=== PATIENT | female | born 1985 | race Caucasian/White ===

== ENCOUNTER 2016-09-28 01:44 | Emergency (ER) | payer MEDICAID ==
[~2016-09-28] VITALS: Ht 154.9 cm; Wt 95.0 kg
[~2016-09-28 01:44] MED LIST: ACET500C5 PO; ALBU18HF INHALATION; AMO500 PO; AUG875 PO; AZIT250T94 PO; CETI10CA PO; CYCL-319 PO; HYDR-3498 PO; IBUP-1542 PO; MOTRIN; NAPR-260 PO; NAPR-688 PO; PREN1TAB49 PO; PSEU120T51 PO; RANI150T9 PO
[2016-09-28 01:47] VITALS: Ht 154.9 cm; Wt 95.0 kg
[2016-09-28] MEDS ORDERED: PSEU120T51 PO (02:38)
[2016-09-28] MEDS ORDERED: AMOX1TAB10 PO (02:38)
--- NOTE | 2016-09-28 02:58 | ERD ---
ER Documentation Chief Complaint Date/Time DATE: 09/28/16 TIME: 02:56 Chief Complaint fever, headache, nasal congestion HPI 31-year-old female presents with runny nose headache, nasal congestion for the past 1 month. She states that she has had allergy symptoms, has been seen by her doctor and was given a nasal spray as well as Zyrtec. She states that she has a frontal headache, is pressure-like. She reports tactile fevers only. No vomiting or diarrhea. ROS All systems reviewed and are negative except as per history of present illness. Medications Home Meds Active Scripts Pseudoephedrine Hcl (Sudafed 12 Hour) 120 Mg Tablet.sa, 120 MG PO BID, #6 Prov:KARLO MOSHER PA-C 09/28/16 Amoxicillin/Potassium Clav (Amox-Clav 875-125 mg Tablet) 875-125 mg Tab, 1 TAB PO BID for 7 Days, #14 TAB Prov:KARLO MOSHER PA-C 09/28/16 Amoxicillin-Clavulanate K* (Augmentin*) 875 Mg Tab, 875 MG PO BID for 7 Days, TAB Prov:KARLO MOSHER PA-C 08/06/15 Ranitidine Hcl* (Zantac*) 150 Mg Tablet, 150 MG PO BID, #60 TAB Prov:SHERLYN ALBERTO DO 07/14/15 Naproxen* (Naproxen*) 500 Mg Tablet, 500 MG PO BID, #14 TAB Prov:DOLLYSHERLYN DO 07/14/15 Albuterol Sulfate* (Ventolin HFA*) 18 Gm Hfa.aer.ad, 2 PUFF INHALATION Q4H, #1 INHALER Prov:DOLLYSHERLYNCARLI AGRAWAL 07/14/15 Amoxicillin* (Amoxicillin*) 500 Mg Cap, 500 MG PO Q8, #30 CAP Prov:DOLLYSHERLYN DO 07/14/15 Acetaminophen* (Tylophen*) 500 Mg Capsule, 1 CAP PO Q6H Y for PAIN AND OR ELEVATED TEMP, #20 CAP Prov:KEYUR BELTRE NP 07/13/15 Cetirizine Hcl* (Zyrtec*) 10 Mg Capsule, 10 MG PO DAILY, #30 TAB.CHEW Prov:KEYUR BELTRE NP 07/13/15 Ibuprofen* (Motrin*) 600 Mg Tab, 600 MG PO Q6, #14 TAB Prov:AMPARO PIÑA MD 05/23/15 Azithromycin* (Zithromax*) 250 Mg Tablet, 250 MG PO .ZPACK DIRECTED, #6 TAB TAKE 500 MG (2 TABS) THE FIRST DAY THEN 250 MG (1 TAB) DAYS 2-5 Prov:AMPARO PIÑA MD 05/23/15 Pseudoephedrine Hcl (Sudafed 12 Hour) 120 Mg Tablet.sa, 120 MG PO BID, #14 Prov:AMPARO PIÑA MD 05/23/15 Cyclobenzaprine Hcl* (Cyclobenzaprine Hcl*) 10 Mg Tablet, 10 MG PO TID, #15 TAB Prov:KAVON MENDEZ PA-C 04/26/15 Naproxen* (Naprosyn*) 500 Mg Tablet, 500 MG PO BID Y for PAIN AND/OR INFLAMMATION, #30 TAB Prov:KAVON MENDEZ PA-C 04/26/15 Hydrocodone Bit-Acetaminophen* ([place]*) 5-325 Mg Tab, 1 TAB PO Q6 Y for PAIN, # 10 TAB Prov:KAVON MENDEZ PA-C 04/26/15 Reported Medications Vits W-Ca,Fe,Fa(<1MG) () 1 Tab Tablet, 1 PO DAILY 11/16/11 Motrin 04/22/10 Allergies Allergies: Coded Allergies: No Known Drug Allergy (Verified Allergy, Unknown, 08/24/14) PMhx/Soc History of Surgery: No Anesthesia Reaction: No Hx Neurological Disorder: No Hx Respiratory Disorders: No Hx Cardiac Disorders: No Hx Psychiatric Problems: No Hx Miscellaneous Medical Probl: No Hx Alcohol Use: No Hx Substance Use: No Hx Tobacco Use: No Physical Exam Vitals Vital Signs Date Time Temp Pulse Resp B/P Pulse Ox O2 Delivery O2 Flow Rate FiO2 09/28/16 01:47 97.8 62 20 137/63 99 Physical Exam General: Well-developed, well-nourished. The patient appears in no acute distress. HEENT: Head is normocephalic, atraumatic. No scleral icterus. Frontal sinuses are tender to palpation, there is obvious nasal congestion noted. TMs are normal, oropharynx is clear. Neck: Supple. Nontender. Lungs: Clear to auscultation. Normal air movement. Heart: Regular rate and rhythm. S1 and S2 are normal. No murmurs, gallops, or rubs. Abdomen: Nondistended. Extremities: No clubbing or cyanosis. Moving extremities x 4. No weakness. Neurologic: Alert and oriented 3. No focal deficits. Normal speech and gait. Skin: Normal turgor. No rash or lesions. Procedures/MDM 31-year-old female presents with sinus congestion for greater than 2 weeks. Patient will be treated for acute sinusitis given the length and duration of the course without any improvement with Zyrtec and nasal spray. There are no signs of any meningitis, abscess, pneumonia, strep pharyngitis, facial cellulitis. Departure Diagnosis: Primary Impression: Sinusitis Condition: Good Patient Instructions: Sinusitis, Abx Tx Additional Instructions: Llame al doctor MAANA y beverly issac HA PARA DENTRO DE 1-2 KUMAR.Dgale a la secretaria que nosotros le instruimos hacer esta ha.Avise o llame si long condicin se empeora antes de la ha. Regresa aqui si peor o no mejor. KARLO MOSHER PA-C Sep 28, 2016 02:58
== END 2016-09-28 03:01 | disposition home or self-care (01) ==
LOC: FTE 01:44
DX: J32.9 Chronic sinusitis, unspecified (principal)
CPT/HCPCS: 99283

== ENCOUNTER 2017-01-29 09:56 | Emergency (ER) | payer MEDICAID ==
[~2017-01-29] VITALS: Ht 149.9 cm; Wt 94.5 kg
[~2017-01-29 09:56] MED LIST changes: +AMOX1TAB10 PO
[2017-01-29 10:01] VITALS: Ht 149.9 cm; Wt 94.5 kg
[2017-01-29] MEDS ORDERED: ONDANSETRON 4 MG INJ IV STA (10:32)
[2017-01-29] MEDS ORDERED: SOD CHLORIDE 0.9% 1,000 ML IV STA (10:32)
[2017-01-29] MEDS ORDERED: ACETAMINOPHEN 500 MG TAB PO STA (10:39)
[2017-01-29 11:02] LABS: BASOPHIL # 0.1 10^3/ul (0.0-0.1); BASOPHILS % 0.6 % (0.0-2.0); EOSINOPHILS # 0.1 10^3/ul (0.0-0.5); EOSINOPHILS % 1.1 % (0.0-7.0); HEMATOCRIT 41.6 % (37.0-47.0); HEMOGLOBIN 13.8 g/dl (12.0-16.0); LYMPHOCYTES # 2.9 10^3/ul (0.8-2.9); LYMPHOCYTES % 23.2 % (15.0-51.0); MEAN CORPUSCULAR HEMOGLOBIN 28.5 pg (29.0-33.0); MEAN CORPUSCULAR HGB CONC 33.2 g/dl (32.0-37.0); MEAN PLATELET VOLUME 12.2 fl (7.4-10.4); MONOCYTE # 1.1 10^3/ul (0.3-0.9); MONOCYTES % 8.7 % (0.0-11.0); NEUTROPHIL # 8.2 10^3/ul (1.6-7.5); NEUTROPHILS % 65.9 % (39.0-77.0); PLATELET COUNT 251 10^3/UL (140-415); RED BLOOD COUNT 4.84 10^6/ul (4.20-5.40); RED CELL DISTRIBUTION WIDTH 12.9 % (11.5-14.5); WHITE BLOOD COUNT 12.4 10^3/ul (4.8-10.8)
[2017-01-29 11:13] LABS: ADD UMIC YES; UR ASCORBIC ACID NEGATIVE (NEGATIVE); UR BILIRUBIN (Dip) NEGATIVE (NEGATIVE); UR BLOOD (Dip) 1+ mg/dL (NEGATIVE); UR CLARITY SLIGHTLY CLOUDY (CLEAR); UR COLOR YELLOW (YELLOW); UR GLUCOSE (Dip) NEGATIVE (NEGATIVE); UR KETONES (Dip) NEGATIVE (NEGATIVE); UR LEUKOCYTE ESTERASE (Dip) NEGATIVE Leu/ul (NEGATIVE); UR NITRITE (Dip) NEGATIVE (NEGATIVE); UR RBC 2 /HPF (0-5); UR SQUAMOUS EPITHELIAL CELL MODERATE /HPF (FEW); UR TOTAL PROTEIN (Dip) NEGATIVE (NEGATIVE); UR UROBILINOGEN (Dip) NEGATIVE (NEGATIVE)
[2017-01-29 11:25] LABS: ALBUMIN 4.3 g/dl (3.3-4.9); ALBUMIN/GLOBULIN RATIO 1.26; BILIRUBIN,INDIRECT 0.3 mg/dl (0-1.1); BILIRUBIN,TOTAL 0.3 mg/dl (0.2-1.3); CALCIUM 9.7 mg/dl (8.4-10.2); CREATININE 0.54 mg/dl (0.44-1.00); TOTAL PROTEIN 7.7 g/dl (6.1-8.1)
--- NOTE | 2017-01-29 11:40 | RADRPT ---
PROCEDURE: US Abdomen. CLINICAL INDICATION: abdominal pain TECHNIQUE: Multiple real-time images were acquired of the patient's right upper quadrant abdomen a nd retroperitoneum utilizing a high resolution transducer. COMPARISON: None FINDINGS: Limited study due to the patient's body habitus. The liver demonstrates normal echogenicity. The liver is normal in size and no focal solid lesions are seen. The liver measures 14.4 cm in length. The portal vein is patent with normal direction of f low. No intrahepatic biliary dilatation is seen. No gallstones are identified within the gallbladder. There is no pericholecystic fluid or gallbladd er wall thickening. The common bile duct was not seen. The visualized portions of the pancreas are unremarkable. The tail of the pancreas is not seen. No free fluid is identified. The right kidney is normal in size, and demonstrate normal echogenicity and cortical thickness. The right kidney measures 10.8 cm in long dimension. There is no evidence of hydronephrosis. There are no kidney stones. RPTAT: AA IMPRESSION: Limited study due to the patient's body habitus. No evidence of gallstones. CBD not visualized. .Braulio Zendejas MD, Date Time Electronically viewed and signed by .Braulio Zendejas MD, on 01/29/2017 11:40 .S/
--- NOTE | 2017-01-29 12:27 | RADRPT ---
PROCEDURE: CT abdomen and pelvis without intravenous contrast. CLINICAL INDICATION: Abdominal pain with nausea, vomiting, and diarrhea for 1 day TECHNIQUE: CT of the abdomen/pelvis was performed utilizing axial images with reconstructions in s agittal and coronal planes. The administered radiation dose is CTDI 22.54 mGy, DLP 1349.63 mGy-cm. O ne or more of the following dose reduction techniques were used: Automated exposure control, Adjustm ent of the mA and/or kV according to patient size, or Use of iterative reconstruction technique. COMPARISON: Abdominal ultrasound 01/29/2017 FINDINGS: Lung bases: The lung bases are clear, except for mild atelectasis and / or scarring in the right mid dle lobe and lingula. A 4 mm calcified granuloma with adjacent mild atelectasis or scarring is noted in the inferior left lower lobe peripherally. .The heart is normal size without pericardial effusi on. CT ABDOMEN: Evaluation of the abdominal viscera is limited without intravenous contrast. Gastrointestinal tract: There is no bowel obstruction.No abnormal colonic wall thickening is identif ied.There is no pneumoperitoneum. A normal-appearing retrocecal appendix is visualized. No periappe ndiceal inflammatory changes are noted. A few nonspecific mildly prominent sub centimeter rohit ceca l lymph nodes are noted. Liver: The liver is normal in size.There is no intrahepatic ductal dilatation. Gallbladder: The gallbladder is grossly unremarkable. Pancreas: The pancreas is grossly unremarkable. Spleen: The spleen is normal in size. Kidneys: The kidneys are normal in size and contour.No renal calculi identified.There is no evidence of hydronephrosis. Adrenal glands: The bilateral adrenal glands are unremarkable. Retroperitoneum: There is no retroperitoneal adenopathy.The aorta is normal in caliber. Probable lower anterior abdominal wall injection granulomata are noted. CT PELVIS: Pelvic organs: The uterus is mildly prominent and contains a small amount of fluid in the endometria l canal. The ovaries are not well seen. Bladder: The bladder is distended, but grossly unremarkable. There is no pelvic free fluid.No pelvic adenopathy is identified. Osseous structures: No destructive lytic or blastic osseous lesion is identified. IMPRESSION: Evaluation of the abdominal viscera is limited without intravenous contrast. 1. No evidence of acute intra-abdominal pathology. 2. Mildly prominent uterus containing a small amount of fluid in the endometrial canal. Correlate w ith menstrual history. 3. Left lower lobe peripheral calcified granuloma and minimal atelectasis at the lung bases. RPTAT: PP Carmen Yanez, Physician Date Time Electronically viewed and signed by Carmen Yanez, Physician on 01/29/2017 12:26 /
[2017-01-29] MEDS ORDERED: ONDA4TAB14 PO (12:32)
[2017-01-29] MEDS ORDERED: FAMO-96 PO (12:33)
--- NOTE | 2017-01-29 12:49 | ERD ---
ER Documentation Chief Complaint Date/Time DATE: 01/29/17 TIME: 12:47 Chief Complaint 9/10 abd pain x this am HPI This is a 31-year-old female presenting to the emergency department complaining of severe abdominal pain, locating in her epigastric region that radiates to her back since this morning. Patient states it is constant and admits to having associated nausea and nonbilious non-bloody vomiting. Patient denies any constipation or diarrhea. She states that she has tried Pepto-Bismol however she vomited it. Her past surgeries include 3 C-sections. She states she is currently on her menstrual period ROS All systems reviewed and are negative except as per history of present illness. Medications Home Meds Active Scripts Famotidine* (Pepcid*) 20 Mg Tablet, 20 MG PO DAILY, #14 TAB Prov:DONNY ROGERS PA-C 01/29/17 Ondansetron (Ondansetron Odt) 4 Mg Tab.rapdis, 4 MG PO Q6H Y for NAUSEA AND/OR VOMITING, #20 TAB Prov:DONNY ROGERS PA-C 01/29/17 Pseudoephedrine Hcl (Sudafed 12 Hour) 120 Mg Tablet.sa, 120 MG PO BID, #6 Prov:KARLO MOSHER PA-C 09/28/16 Amoxicillin/Potassium Clav (Amox-Clav 875-125 mg Tablet) 875-125 mg Tab, 1 TAB PO BID for 7 Days, #14 TAB Prov:KARLO MOSHER PA-C 09/28/16 Amoxicillin-Clavulanate K* (Augmentin*) 875 Mg Tab, 875 MG PO BID for 7 Days, TAB Prov:KARLO MOSHER PA-C 08/06/15 Ranitidine Hcl* (Zantac*) 150 Mg Tablet, 150 MG PO BID, #60 TAB Prov:SHERLYN ALBERTO DO 07/14/15 Naproxen* (Naproxen*) 500 Mg Tablet, 500 MG PO BID, #14 TAB Prov:SHERLYN ALBERTO DO 07/14/15 Albuterol Sulfate* (Ventolin HFA*) 18 Gm Hfa.aer.ad, 2 PUFF INHALATION Q4H, #1 INHALER Prov:SHERLYN ALBERTO DO 07/14/15 Amoxicillin* (Amoxicillin*) 500 Mg Cap, 500 MG PO Q8, #30 CAP Prov:SHERLYN ALBERTO DO 07/14/15 Acetaminophen* (Tylophen*) 500 Mg Capsule, 1 CAP PO Q6H Y for PAIN AND OR ELEVATED TEMP, #20 CAP Prov:KEYUR BELTRE NP 07/13/15 Cetirizine Hcl* (Zyrtec*) 10 Mg Capsule, 10 MG PO DAILY, #30 TAB.CHEW Prov:KEYUR BELTRE NP 07/13/15 Ibuprofen* (Motrin*) 600 Mg Tab, 600 MG PO Q6, #14 TAB Prov:AMPARO PIÑA MD 05/23/15 Azithromycin* (Zithromax*) 250 Mg Tablet, 250 MG PO .AimeePACK DIRECTED, #6 TAB TAKE 500 MG (2 TABS) THE FIRST DAY THEN 250 MG (1 TAB) DAYS 2-5 Prov:AMPARO PIÑA MD 05/23/15 Pseudoephedrine Hcl (Sudafed 12 Hour) 120 Mg Tablet.sa, 120 MG PO BID, #14 Prov:AMPARO PIÑA MD 05/23/15 Cyclobenzaprine Hcl* (Cyclobenzaprine Hcl*) 10 Mg Tablet, 10 MG PO TID, #15 TAB Prov:KAVON MENDEZ PA-C 04/26/15 Naproxen* (Naprosyn*) 500 Mg Tablet, 500 MG PO BID Y for PAIN AND/OR INFLAMMATION, #30 TAB Prov:KAVON MENDEZ PA-C 04/26/15 Hydrocodone Bit-Acetaminophen* ([place]*) 5-325 Mg Tab, 1 TAB PO Q6 Y for PAIN, # 10 TAB Prov:KAVON MENDEZ PA-C 04/26/15 Reported Medications Vits W-Ca,Fe,Fa(<1MG) () 1 Tab Tablet, 1 PO DAILY 11/16/11 Motrin 04/22/10 Allergies Allergies: Coded Allergies: No Known Drug Allergy (Verified Allergy, Unknown, 01/29/17) PMhx/Soc History of Surgery: Yes (c/section x3) Anesthesia Reaction: No Hx Neurological Disorder: No Hx Respiratory Disorders: No Hx Cardiac Disorders: No Hx Psychiatric Problems: No Hx Miscellaneous Medical Probl: No Hx Alcohol Use: No Hx Substance Use: No Hx Tobacco Use: No Smoking Status: Never smoker Physical Exam Vitals Vital Signs Date Time Temp Pulse Resp B/P Pulse Ox O2 Delivery O2 Flow Rate FiO2 01/29/17 10:01 98.2 89 18 139/94 100 Physical Exam GENERAL: well-developed/well-nourished, in no apparent distress, non-toxic appearing Morbidly obese HENT: NC/AT, moist mucous membranes EYES: Conjunctiva normal NECK: Supple, no lymphadenopathy PULM: CTA bilaterally, no rales, rhonchi, or wheezing heard CV: Normal S1S2, RRR, good capillary refill GI: Soft, non-distended, tender to palpation epigastric region and all quadrants however more mostly tender in the epigastric region Normal bowel sounds, no masses or organomegaly felt on exam No gross peritonitis, no bruits Negative Rovsing, negative Eason, negative McBurney's point, Negative CVAT BACK: No masses EXT: No clubbing, cyanosis, or edema NEURO: Alert and Orientated SKIN: Intact, normal turgor PSYCH: Normal mood and mentation Result Diagram: 01/29/17 1045 01/29/17 1045 Results 24 hrs Laboratory Tests Test 01/29/17 10:40 01/29/17 10:45 Urine Color YELLOW Urine Clarity SLIGHTLY CLOUDY Urine pH 7.0 Urine Specific [place] 1.010 Urine Ketones NEGATIVEmg/dL Urine Nitrite NEGATIVEmg/dL Urine Bilirubin NEGATIVEmg/dL Urine Urobilinogen NEGATIVEmg/dL Urine Leukocyte Esterase NEGATIVELeu/ul Urine Microscopic RBC 2/HPF Urine Microscopic WBC 1/HPF Urine Squamous Epithelial Cells MODERATE/HPF Urine Hemoglobin 1+mg/dL Urine Glucose NEGATIVEmg/dL Urine Total Protein NEGATIVEmg/dl White Blood Count 12.410^3/ul Red Blood Count 4.8410^6/ul Hemoglobin 13.8g/dl Hematocrit 41.6% Mean Corpuscular Volume 86.0fl Mean Corpuscular Hemoglobin 28.5pg Mean Corpuscular Hemoglobin Concent 33.2g/dl Red Cell Distribution Width 12.9% Platelet Count 48978^3/UL Mean Platelet Volume 12.2fl Neutrophils % 65.9% Lymphocytes % 23.2% Monocytes % 8.7% Eosinophils % 1.1% Basophils % 0.6% Nucleated Red Blood Cells % 0.0/100WBC Neutrophils # 8.210^3/ul Lymphocytes # 2.910^3/ul Monocytes # 1.110^3/ul Eosinophils # 0.110^3/ul Basophils # 0.110^3/ul Nucleated Red Blood Cells # 0.010^3/ul Sodium Level 143mmol/L Potassium Level 4.0mmol/L Chloride Level 98mmol/L Carbon Dioxide Level 29mmol/L Anion Gap 20 Blood Urea Nitrogen 8mg/dl Creatinine 0.54mg/dl Glucose Level 101mg/dl Calcium Level 9.7mg/dl Total Bilirubin 0.3mg/dl Direct Bilirubin 0.00mg/dl Indirect Bilirubin 0.3mg/dl Aspartate Amino Transf (AST/SGOT) 37IU/L Alanine Aminotransferase (ALT/SGPT) 40IU/L Alkaline Phosphatase 48IU/L Total Protein 7.7g/dl Albumin 4.3g/dl Globulin 3.40g/dl Albumin/Globulin Ratio 1.26 Lipase 120U/L Current Medications Medications (Trade) Dose Ordered Sig/Iesha Route PRN Reason Start Time Stop Time Status Last Admin Dose Admin Sodium Chloride (NS) 1,000 ml @ 1,000 mls/hr Q1H STAT IV 01/29/17 10:32 01/29/17 11:31 DC 01/29/17 10:58 Ondansetron HCl (Zofran Inj) 4 mg ONCE STAT IV 01/29/17 10:32 01/29/17 10:34 DC 01/29/17 10:58 Acetaminophen (Tylenol Tab) 1,000 mg ONCE STAT PO 01/29/17 10:39 01/29/17 10:40 DC Procedures/MDM 31-year-old female who is morbidly obese presents to the emergency department complaining of severe abdominal pain, with associated nausea since this morning. This is likely a viral gastroenteritis. Other differentials include gastritis, PUD. There was no evidence of cholecystitis, obstruction, appendicitis, diverticulitis, pancreatitis, cholelithiasis. IV access established. CBC showed mild leukocytosis. CMP was unremarkable. Urinalysis did not show any evidence of a urinary tract infection. Gallbladder ultrasound and CT abdomen and pelvis without contrast did not show any evidence of acute intra-abdominal pathology. Patient was given pain relief in the ED, she stable to be discharged home. I discussed with her to follow-up with her primary care physician. Patient understood and agree with that. Gallbladder US: Limited study due to the patient's body habitus. No evidence of gallstones. CBD not visualized. CT abd & pelvis without contrast - 1. No evidence of acute intra-abdominal pathology. 2. Mildly prominent uterus containing a small amount of fluid in the endometrial canal. Correlate with menstrual history. 3. Left lower lobe peripheral calcified granuloma and minimal atelectasis at the lung bases. Departure Diagnosis: Primary Impression: Epigastric pain Additional Impression: Vomiting Vomiting type: unspecified Vomiting Intractability: non-intractable Nausea presence: with nausea Qualified Code: R11.2 - Non-intractable vomiting with nausea, unspecified vomiting type Condition: Stable Patient Instructions: Gerd (Adult), Vomiting (6Y-Adult), Epigastric Pain ( Uncertain Cause) Additional Instructions: Visite a long mikayla jewell para un EXAMEN.Regrese a estas instalaciones si no se mejora aleksandar esperbamos o aleksandar le dijimos. [place] toda la medicina artie y aleksandar se le indic. Regrese a estas instalaciones si no se mejora aleksandar esperbamos o aleksandar le dijimos. DONNY ROGERS PA-C Jan 29, 2017 12:49
[2017-01-29 13:23] VITALS: BP 110/74; PULSE 69; RESP 16; TEMP 98.2
== END 2017-01-29 13:33 | disposition home or self-care (01) ==
LOC: FTE 09:56
DX: R10.13 Epigastric pain (principal); R11.2 Nausea with vomiting, unspecified; E66.01 Morbid (severe) obesity due to excess calories; Z68.41 Body mass index [BMI] 40.0-44.9, adult
CPT/HCPCS: 36415; 74176; 76705; 80053; 81001; 83690; 85025; 96374; J2405; J7030; Z7502

== ENCOUNTER 2017-08-15 03:17 | Emergency (ER) | END 2017-08-15 04:51 | disposition home or self-care (01) ==

== ENCOUNTER 2017-08-25 17:59 | Emergency (ER) | END 2017-08-25 22:19 | disposition home or self-care (01) ==